=== PATIENT | male | born 1970 | race Caucasian/White ===

== ENCOUNTER 2017-11-03 12:27 | Emergency (ER) | payer SELFPAY ==
[~2017-11-03] VITALS: Ht 180.3 cm; Wt 75.0 kg
[2017-11-03 12:27] VITALS: BP 156/85; PULSE 109; RESP 18; TEMP 97.8; O2SAT 100
[~2017-11-03 12:27] MED LIST: DOXY100T PO; SULF1TAB47 PO; Z.0.NO CURRENT MEDS
[2017-11-03] MEDS ORDERED: CLINDAMYCIN 600 MG/NS PREMIX 50 ML IV ONE (14:00)
[2017-11-03 14:27] LABS: AUTOMATED NEUTROPHIL # 14.8 TH/MM3 (1.8-7.7); BASOPHIL # 0.1 TH/MM3 (0-0.2); BASOPHIL % 0.5 % (0.0-2.0); EOSINOPHIL # 0.1 TH/MM3 (0-0.4); EOSINOPHIL % 0.4 % (0.0-4.0); HEMATOCRIT 40.4 % (39.0-51.0); HEMOGLOBIN 13.8 GM/DL (13.0-17.0); LYMPH % 13.6 % (9.0-44.0); LYMPHOCYTE # 2.6 TH/MM3 (1.0-4.8); MEAN CELL VOLUME 86.6 FL (80.0-100.0); MEAN CORPUSCULAR HEMOGLOBIN 29.6 PG (27.0-34.0); MEAN CORPUSCULAR HGB CONC 34.1 % (32.0-36.0); MEAN PLATELET VOLUME 7.6 FL (7.0-11.0); MONO % 8.9 % (0.0-8.0); MONOCYTE # 1.7 TH/MM3 (0-0.9); NEUT % 76.6 % (16.0-70.0); PLATELET COUNT 357 TH/MM3 (150-450); RED BLOOD COUNT 4.67 MIL/MM3 (4.50-5.90); RED CELL DISTRIBUTION WIDTH 13.6 % (11.6-17.2); WHITE BLOOD COUNT 19.3 TH/MM3 (4.0-11.0)
[2017-11-03 14:43] LABS: ALKALINE PHOSPHATASE 95 U/L (45-117); TOTAL PROTEIN 8.5 GM/DL (6.4-8.2)
[2017-11-03 14:51] LABS: ALBUMIN 3.4 GM/DL (3.4-5.0); ALT (GPT) 35 U/L (12-78); AST (GOT) 26 U/L (15-37); BICARBONATE 26.7 MEQ/L (21.0-32.0); BLOOD UREA NITROGEN 6 MG/DL (7-18); CALCIUM 9.1 MG/DL (8.5-10.1); CHLORIDE 99 MEQ/L (98-107); CREATININE 0.71 MG/DL (0.60-1.30); GLOMERULAR FILTRATION RATE 119 ML/MIN (>89); GLUCOSE,RANDOM 92 MG/DL (74-106); SODIUM (NA) 131 MEQ/L (136-145)
[2017-11-03] MEDS ORDERED: CLIN300C5 PO (14:55)
[2017-11-03] MEDS ORDERED: MUPI2%T TOPICAL (14:55)
--- NOTE | 2017-11-03 14:55 | PD ---
HPI Chief Complaint: Skin Problem Time Seen by Provider: 13:56 Travel History International Travel<30 days: No Contact w/Intl Traveler<30days: No Traveled to known affect area: No History of Present Illness HPI 47-year-old man, presents to the emergency department complaining of skin lesions ongoing for the past several days. Patient is a history of injection drug use. He describes feeling well until several days ago started getting widespread skin ulcerations and scabbing. Patient denies fevers. Denies history of previous similar problems. Symptoms are worsening over the past several days. He has erythema and streaking up his right arm. History Past Medical History Narrative Medical IV drug use Tetanus Vaccination: > 5 Years Influenza Vaccination: No Social History Alcohol Use: Yes Tobacco Use: Yes (1 pack per day) Allergies-Medications (Allergen,Severity, Reaction): Coded Allergies: No Known Allergies (Verified Adverse Reaction, Unknown, 11/03/17) Reported Meds & Prescriptions Reported Meds & Active Scripts Active Bactroban Topical (Mupirocin) 22 Gm Cream 1 Applic TOPICAL BID Clindamycin (Clindamycin HCl) 300 Mg Cap 300 Mg PO TID 10 Days Review of Systems Except as stated in HPI: all other systems reviewed are Neg Physical Exam Narrative GENERAL: 47-year-old man, disheveled, homeless appearing. SKIN: Focused skin assessment warm/dry. 20+ areas a small corn shaped scabbing disc lesions with some weeping draining fluids from both sides. The right arm there is some tracking erythema/lymphangitis moving from the volar forearm up into the brachium. He also has a palpable lymph node in the right axilla. HEAD: Atraumatic. Normocephalic. EYES: Pupils equal and round. No scleral icterus. No injection or drainage. ENT: No nasal bleeding or discharge. Mucous membranes pink and moist. NECK: Trachea midline. No JVD. CARDIOVASCULAR: Regular rate and rhythm. No murmurs. RESPIRATORY: No accessory muscle use. Clear to auscultation. Breath sounds equal bilaterally. GASTROINTESTINAL: Abdomen soft, non-tender, nondistended. Hepatic and splenic margins not palpable. MUSCULOSKELETAL: No obvious deformities. No edema. NEUROLOGICAL: Awake and alert. No obvious cranial nerve deficits. Motor grossly within normal limits. Normal speech. PSYCHIATRIC: Appropriate mood and affect; insight and judgment normal. Data Data Last Documented VS Vital Signs Date Time Temp Pulse Resp B/P (MAP) Pulse Ox O2 Delivery O2 Flow Rate FiO2 11/03/17 13:56 16 11/03/17 12:27 97.8 109 156/85 (108) 100 Orders Orders Complete Blood Count With Diff (11/03/17 13:57) Comprehensive Metabolic Panel (11/03/17 13:57) Blood Culture (11/03/17 13:57) Clindamycin 600 Mg/Ns Premix (Cleocin 60 (11/03/17 14:00) Iv Access Insert/Monitor (11/03/17 13:57) Wound Culture And Gram Stain (11/03/17 14:11) Labs Laboratory Tests Test 11/03/17 14:00 White Blood Count 19.3 TH/MM3 Red Blood Count 4.67 MIL/MM3 Hemoglobin 13.8 GM/DL Hematocrit 40.4 % Mean Corpuscular Volume 86.6 FL Mean Corpuscular Hemoglobin 29.6 PG Mean Corpuscular Hemoglobin Concent 34.1 % Red Cell Distribution Width 13.6 % Platelet Count 357 TH/MM3 Mean Platelet Volume 7.6 FL Neutrophils (%) (Auto) 76.6 % Lymphocytes (%) (Auto) 13.6 % Monocytes (%) (Auto) 8.9 % Eosinophils (%) (Auto) 0.4 % Basophils (%) (Auto) 0.5 % Neutrophils # (Auto) 14.8 TH/MM3 Lymphocytes # (Auto) 2.6 TH/MM3 Monocytes # (Auto) 1.7 TH/MM3 Eosinophils # (Auto) 0.1 TH/MM3 Basophils # (Auto) 0.1 TH/MM3 CBC Comment DIFF FINAL Differential Comment Blood Urea Nitrogen 6 MG/DL Creatinine 0.71 MG/DL Random Glucose 92 MG/DL Total Protein 8.5 GM/DL Albumin 3.4 GM/DL Calcium Level 9.1 MG/DL Alkaline Phosphatase 95 U/L Aspartate Amino Transf (AST/SGOT) 26 U/L Alanine Aminotransferase (ALT/SGPT) 35 U/L Total Bilirubin 1.0 MG/DL Sodium Level 131 MEQ/L Potassium Level 4.2 MEQ/L Chloride Level 99 MEQ/L Carbon Dioxide Level 26.7 MEQ/L Anion Gap 5 MEQ/L Estimat Glomerular Filtration Rate 119 ML/MIN MDM Medical Decision Making Medical Screen Exam Complete: Yes Emergency Medical Condition: Yes Interpretation(s) LABS: CBC remarkable for leukocytosis. CMP is unremarkable. Differential Diagnosis Impetigo, cellulitis, lymphangitis, endocarditis, other Narrative Course 47-year-old man, widespread superficial skin infection with evidence of deeper lymphangitis and cellulitis in the right upper extremity. Recommend IV antibiotics. We'll check labs. We'll do oral clindamycin and Bactroban. The erythema was also marked. We'll have him return for any worsening symptoms. Diagnosis Primary Impression: Cellulitis Additional Impression: Lymphangitis Additional Instructions: Take antibiotics as prescribed. Use Bactroban ointment on all areas of wound. Return to the emergency department for any worsening fevers, if the redness on the arm spread outside the area of demarcation with a marker, or any other new or worsening symptoms. Med/Other Pt SpecificInfo: Prescription(s) given Scripts Mupirocin Topical (Bactroban Topical) 22 Gm Cream 1 APPLIC TOPICAL BID for Mgmt Bacterial Infection, #1 TUBE 0 Refills Prov: Elio Guerrero MD 11/03/17 Clindamycin (Clindamycin) 300 Mg Cap 300 MG PO TID for Infection for 10 Days, #21 CAP 0 Refills Prov: Elio Guerrero MD 11/03/17 Disposition: 01 DISCHARGE HOME Condition: Stable Elio Guerrero MD Nov 03, 2017 14:55
[2017-11-03 15:20] VITALS: BP 130/83; TEMP 98
== END 2017-11-03 15:20 | disposition home or self-care (01) ==
LOC: NEPE 12:27
DX: L03.113 Cellulitis of right upper limb (principal); I89.1 Lymphangitis; F17.200 Nicotine dependence, unspecified, uncomplicated
CPT/HCPCS: 80053; 85025; 86403; 87040; 87070; 87186; 87205; 96374

== ENCOUNTER 2018-03-09 13:07 | Emergency (ER) | payer SELFPAY ==
[~2018-03-09] VITALS: Ht 180.3 cm; Wt 77.2 kg
[~2018-03-09 13:07] MED LIST changes: +CLIN300C5 PO; -DOXY100T PO; +MUPI2%T TOPICAL; -SULF1TAB47 PO; -Z.0.NO CURRENT MEDS
[2018-03-09 13:19] VITALS: BP 113/70; PULSE 99; RESP 20; TEMP 98.1; O2SAT 96
--- NOTE | 2018-03-09 14:50 | PD ---
HPI Chief Complaint: Skin Problem Time Seen by Provider: 14:22 Travel History International Travel<30 days: No Contact w/Intl Traveler<30days: No Traveled to known affect area: No History of Present Illness HPI 47-year-old male presents emergency department with abscess to the left forearm. Patient states he has had an area here for the past week after using IV drug use. Patient denies fever or chills. He denies spontaneous drainage. Patient has increased pain, swelling, erythema to the left dorsal forearm. He denies weakness, numbness, tingling, or other constitutional symptoms. He has no known drug allergies. PFSH Past Medical History Blood Disorders: No Cancer: No Diminished Hearing: No Psychiatric: No Integumentary: Yes (abscess) Past Surgical History AICD: No Genitourinary Surgery: No Pacemaker: No Social History Alcohol Use: Yes Tobacco Use: Yes (1 pack per day) Substance Use: Yes (iv drug abuse) Allergies-Medications (Allergen,Severity, Reaction): Coded Allergies: No Known Allergies (Verified Adverse Reaction, Unknown, 03/09/18) Reported Meds & Prescriptions Reported Meds & Active Scripts Active Ibuprofen 800 Mg Tab 800 Mg PO Q8H PRN Bactrim DS (Sulfamethoxazole-Trimethoprim) 800-160 Mg Tab 1 Tab PO BID Review of Systems Except as stated in HPI: all other systems reviewed are Neg General / Constitutional: No: Fever Eyes: No: Visual changes HENT: No: Headaches Cardiovascular: No: Chest Pain or Discomfort Respiratory: No: Shortness of Breath Gastrointestinal: No: Abdominal Pain Genitourinary: No: Dysuria Musculoskeletal: No: Pain Skin: Positive Lesions (See history of present illness per), No Rash Neurologic: No: Weakness Psychiatric: No: Depression Endocrine: No: Polydipsia Hematologic/Lymphatic: No: Easy Bruising Physical Exam Narrative GENERAL: Patient appears in mild to moderate distress. SKIN: Warm and dry. Normal color. Normal turgor. Patient has obvious abscess to the dorsal left forearm with induration, erythema, tenderness, warmth, and pointing. HEAD: Atraumatic. Normocephalic. EYES: Pupils equal and round. No scleral icterus. No injection or drainage. ENT: No nasal bleeding or discharge. Mucous membranes pink and moist. Pharynx is clear. Airways patent. NECK: Trachea midline. Supple and nontender. CARDIOVASCULAR: Regular rate and rhythm. RESPIRATORY: No accessory muscle use. Clear to auscultation. Breath sounds equal bilaterally. MUSCULOSKELETAL: Extremities without clubbing, cyanosis, or edema. No obvious deformities. Normal senior ui developer strength. Normal neurovascular exam noted. NEUROLOGICAL: Awake and alert. No obvious cranial nerve deficits. Motor grossly within normal limits. Five out of 5 muscle strength in the arms and legs. Normal speech. PSYCHIATRIC: Appropriate mood and affect; insight and judgment normal. Data Data Last Documented VS Vital Signs Date Time Temp Pulse Resp B/P (MAP) Pulse Ox O2 Delivery O2 Flow Rate FiO2 03/09/18 13:19 98.1 99 20 113/70 (84) 96 Orders Orders Wound Culture And Gram Stain (03/09/18 14:47) Clindamycin Inj (Cleocin Inj) (03/09/18 15:00) Lidocai-Epi 1%-1:100,000 Inj (Xylocaine- (03/09/18 15:00) MDM Medical Decision Making Medical Screen Exam Complete: Yes Emergency Medical Condition: Yes Differential Diagnosis IV drug use. Abscess. MRSA. Cellulitis . Narrative Course Patient is medically stable at time of exam. Patient was given clindamycin 600 mg IM. I&D of abscesses performed. Patient is placed on Bactrim DS twice daily 7 days. Patient is placed on ibuprofen 800 mg 3 times daily as needed #60. Patient is to keep the dressing in place until follow-up in 2 days for wound check and packing removal. Patient can follow-up sooner if worsening symptoms develop. Procedures Procedure Narrative After the risks and benefits were discussed the following procedure was performed: INCISION AND DRAINAGE OF ABSCESS: The area was prepped and was sterilely draped. A subcutaneous wheal of 1 % Xylocaine with epinephrine with a total number 4 mL was used to anesthetize the area. The area was properly anesthetized. A number 11 scalpel was used to make a 1-cm incision across the area of the abscess. Cultures were obtained. The abscess was drained an irrigated with normal saline. Quarter inch iodoform packing was placed in the wound. Sterile dressing applied. Patient advised to have packing removed in two days. Diagnosis Primary Impression: Abscess of left forearm Referrals: [facility] Patient Instructions: Abscess Incision and Drainage (DC), General Instructions Additional Instructions: Patient was given clindamycin 600 mg IM. I&D of abscesses performed. Patient is placed on Bactrim DS twice daily 7 days. Patient is placed on ibuprofen 800 mg 3 times daily as needed #60. Patient is to keep the dressing in place until follow-up in 2 days for wound check and packing removal. Patient can follow-up sooner if worsening symptoms develop. Med/Other Pt SpecificInfo: Prescription(s) given, Wound Care Scripts Ibuprofen (Ibuprofen) 800 Mg Tab 800 MG PO Q8H Y for Pain/Inflammation, #60 TAB 0 Refills Prov: Denisha Watkins MD 03/09/18 Sulfamethoxazole-Trimethoprim (Bactrim DS) 800-160 Mg Tab 1 TAB PO BID for Infection, #14 TAB 0 Refills Prov: Denisha Watkins MD 03/09/18 Disposition: 01 DISCHARGE HOME Condition: Stable Phani Shi Mar 09, 2018 14:50
[2018-03-09] MEDS ORDERED: LIDOCAINE 1%/EPINEPHrine 1:100,000 SOLN 20 ML VIAL INFIL ONE (15:00)
[2018-03-09] MEDS ORDERED: CLINDAMYCIN PHOS 600 MG/4 ML VIAL IM ONE (15:00)
[2018-03-09] MEDS ORDERED: BACT800T5 PO (15:08)
[2018-03-09] MEDS ORDERED: IBUP1TAB7 PO (15:08)
== END 2018-03-09 15:45 | disposition home or self-care (01) ==
LOC: NEPD 13:07
DX: L02.414 Cutaneous abscess of left upper limb (principal); F19.10 Other psychoactive substance abuse, uncomplicated; B96.1 Klebsiella pneumoniae [K. pneumoniae] as the cause of diseases classified elsewhere; Z72.0 Tobacco use; Z88.2 Allergy status to sulfonamides
CPT/HCPCS: 10060; 87070; 87077; 87186; 87205; 96372